=== PATIENT | male | born 1990 | race Caucasian/White ===

== ENCOUNTER 2020-02-28 22:45 | Emergency (ER) | payer SELFPAY ==
--- NOTE | ~2020-02-28 | CT_ITS ---
EXAMINATION: CT orbit BI w con DATE: 02/29/2020 00:05 INDICATION: Possible right orbital cellulitis. Right orbital pain. TECHNIQUE: Computed tomography (CT) of the orbits was performed with 75 cc Omnipaque 350 intravenous contrast. The dose-length product was 159.53 mGy-cm. Automated exposure control and iterative reconst ruction technique were employed. COMPARISON: None FINDINGS: There is mild right periorbital soft tissue edema consistent with cellulitis. No discrete a bscess identified. Mucosal thickening of the ethmoid, right frontal and maxillary sinuses consistent with sinusitis, likely chronic. No intracranial abnormality identified. No post septal abnormality. IMPRESSION: 1. Right periorbital soft tissue edema, consistent with cellulitis. No abscess. 2: Sinusitis. Reviewed, dictated and finalized at location B.
[2020-02-28 22:46] VITALS: BP 130/87; PULSE 74; RESP 20; TEMP 36.6; O2SAT 99
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
[2020-02-28 23:23] LABS: Basophils Absolute Auto 0.1 K/mm3 (0.0-0.1); Basophils Percent Auto 0.6 % (0.2-1.2); Eosinophils Absolute Auto 0.4 K/mm3 (0-0.3); Eosinophils Percent Auto 3.3 % (0-4.4); Hematocrit 46.1 % (42.0-52.0); Immature Granulocyte Absolute 0.04 K/mm3 (0.00-0.031); Immature Granulocyte Percent A 0.4 % (0-0.5); Lymphocytes Absolute Auto 1.57 K/mm3 (0.9-3.2); Lymphocytes Percent Auto 14.5 % (18.3-44.2); Mean Corpuscular HGB Conc 34.7 g/dl (32-36); Mean Corpuscular Hemoglobin 32.2 pg (26-34); Mean Corpuscular Volume 92.8 fl (80-100); Mean Platelet Volume 9.4 fl (7.4-10.4); Monocytes Absolute Auto 0.6 K/mm3 (0.1-0.6); Monocytes Percent Auto 5.4 % (2.6-8.5); Neutrophils Absolute Auto 8.2 K/mm3 (1.3-6.7); Neutrophils Percent Auto 75.8 % (45.5-73.1); Platelet Count Result 248 k/mm3 (150-375); Red Blood Count 4.97 M/mm3 (4.6-6.20); Red Cell Distribution Width 12.1 % (11.5-14.5); White Blood Count 10.8 K/mm3 (4.5-10.0)
[2020-02-28] MEDS: TETRACAINE HCL 0.5% OPHTH SOLN 4 ML BTL 1 DROP EACH EYE (23:29)
[2020-02-28] MEDS: FLUORESCEIN SOD 1 MG/STRIP EACH EYE (23:29)
[2020-02-28 23:44] LABS: Anion Gap 9 mmol/L (8-16); Blood Urea Nitrogen 19 mg/dL (9-20); CRP 0.7 mg/dL (<1.0); Calcium 9.6 mg/dL (8.4-10.2); Carbon Dioxide 27 mmol/L (22-30); Chloride 103 mmol/L (98-107); Estimated CRCL calculation 145 ml/min; Estimated Glomerular Filt Rate > 60; Glucose 118 mg/dL (75-110); Potassium 3.6 mmol/L (3.4-5.0); Sodium 139 mmol/L (137-145)
--- NOTE | 2020-02-28 23:51 | PC.NURSE ---
Patient being taken to CT.
[2020-02-29 00:14] LABS: Erythrocyte Sedimentation Rate 14 mm/hr (0-20)
[2020-02-29] MEDS: TETANUS,DIPHTHERIA,AC PERTUSSIS ADULT (0.5 ML) BOOSTRIX IM (00:38)
[2020-02-29 01:03] VITALS: BP 121/81; PULSE 61; RESP 18; O2SAT 100
== END 2020-02-29 01:34 | disposition home or self-care (01) ==
PROVIDERS: Emergency Provider Emergency Medicine
DX: L03.213 Periorbital cellulitis (principal); S05.01XA Injury of conjunctiva and corneal abrasion without foreign body, right eye, initial encounter; F17.210 Nicotine dependence, cigarettes, uncomplicated; Z23 Encounter for immunization; X58.XXXA Exposure to other specified factors, initial encounter
CPT/HCPCS: 36415; 70481; 80048; 85025; 85652; 86140; 87040; 90471; 90715; 96365; 96367; 99284; J0696; J3370; Q9967

== ENCOUNTER 2022-03-05 16:01 | Inpatient (IN) | payer BC, SELFPAY ==
--- NOTE | ~2022-03-05 | CT_ITS ---
EXAMINATION: CT chest abdomen pelvis w con DATE: 03/05/2022 18:59 INDICATION: Shortness of breath, right chest pain, right flank pain TECHNIQUE: Computed tomography (CT) of the chest, abdomen, and pelvis was performed without intraveno us contrast. Automated exposure control and iterative reconstruction technique were employed. Exam do se: 1163.53 mGy-cm total exam DLP. COMPARISON: None FINDINGS: CHEST CT: Approximately 2.5 cm abscess cavity with fluid level, posterolateral right lung base, right lower lob e. Mild bilateral dependent lower lobe atelectasis. Small right pleural effusion. Normal heart size. No thoracic aortic aneurysm or dissection. No hilar or mediastinal mass lesion or lymphadenopathy. ABDOMEN/PELVIS CT: The liver is unremarkable except for steatosis. The gallbladder is unremarkable. No bile duct or panc reatic duct dilatation. No pancreatic mass lesion or calcification. Splenic size is within normal ran ge. Normal morphology of the adrenal glands. No renal mass lesion or urinary tract calculus or hydroureteronephrosis. Normal caliber of the abdominal aorta. No intraperitoneal or retroperitoneal or pelvic mass lesion or adenopathy. There is a small amount of free fluid in the dependent pelvis. Urinary bladder and prost ate gland are unremarkable. No evidence of appendicitis. No bowel obstruction or intraperitoneal free air. Small fat-containing umbilical hernia. Small fat-containing right inguinal hernia. Transitional lumbosacral vertebra. Included skeletal structures are otherwise unremarkable. IMPRESSION: 2.5 cm right lower lobe lung abscess Reviewed, dictated and finalized at Location [facility]. Reviewed, dictated and finalized at location A.
--- NOTE | ~2022-03-05 | XR_ITS ---
XR chest 2V DATE: 03/05/2022 16:35 INDICATION: Dyspnea, right-sided chest pressure TECHNIQUE: 2 views COMPARISON: None FINDINGS: Normal heart size. No hilar or mediastinal enlargement. No pulmonary infiltrate or consolid ation, pleural effusion or pulmonary vascular congestion or pneumothorax. Mild dextroscoliosis of the thoracic spine. IMPRESSION: No active cardiopulmonary disease Reviewed, dictated and finalized at location A.
--- NOTE | ~2022-03-05 | XR_ITS ---
XR hand RT min 3V DATE: 03/05/2022 17:29 INDICATION: Hand infection/abscess TECHNIQUE: 4 portable views COMPARISON: None FINDINGS: No fracture or dislocation, periosteal reaction or bone destruction, erosive change or nayely drocalcinosis. IMPRESSION: No significant bony abnormality Reviewed, dictated and finalized at location A.
[2022-03-05 16:03] VITALS: BP 146/102; PULSE 102; RESP 18; TEMP 36.8; O2SAT 100
--- NOTE | 2022-03-05 16:46 | ECG_ITS ---
Measurements Intervals [place] Rate: 87 P: 17 WA: 149 QRS: 60 QRSD: 115 T: 7 QT: 367 QTc: 442 Interpretive Statements SINUS RHYTHM INCOMPLETE RIGHT BUNDLE BRANCH BLOCK [90+ ms QRS DURATION, TERMINAL R IN V1/V2, 40+ ms S IN I/aVL/V4/V5/V6] NO PREVIOUS ECG AVAILABLE FOR COMPARISON Electronically Signed On 03-06-2022 16:00:45 CDT by Lorenzo Felder M.D.
--- NOTE | 2022-03-05 16:49 | ED.GENADULT ---
HPI - General Adult General Chief complaint: Shortness of Breath/Dyspnea Stated complaint: SOB Time Seen by Provider: 03/05/22 16:21 History of Present Illness HPI narrative: This is a 31-year-old IV drug user presenting to ED with a chief complaint of right hand abscess, chest pain and difficulty breathing. Patient developed an abscess in his right hand approximately 1 week ago. He had tried to do an I and D at home but has been unsuccessful the hand is getting worse. Last night he developed chest pain and shortness of breath. Chest pain is located along his right ribcage, is a stabbing pain that is worse with deep breaths. patient admits to having fevers. Related Data Allergies Allergy/AdvReac Type Severity Reaction Status Date / Time No Known Drug Allergies Allergy Mild Unknown Verified 03/05/22 16:05 Review of Systems Review of Systems: CONSTITUTIONAL: Denies night sweats. EYES: No eye pain ENT: Denies rhinorrhea CARDIOVASCULAR: Denies palpitations RESPIRATORY: Denies hemoptysis GASTROINTESTINAL: Denies hematemesis GENITOURINARY: Denies hematuria. SKIN: Denies rash MUSCULOSKELETAL: Denies myalgia. NEUROLOGIC: Denies weakness. PSYCHIATRIC: Denies delusions PMF Past Medical History Medical History (Updated 03/05/22 @ 22:28 by Noel Miranda MD) Vision loss of left eye Social History Social History (Updated 03/05/22 @ 16:54 by Noel Miranda MD) Social History: IV drug abuse with fentanyl, smokes meth, denies alcohol, uses tobacco Smoking status: Current every day smoker Tobacco type: cigarettes Alcohol intake: never Substance use: never Gender identity (if verbalized by the patient): Male Exam Narrative: APPEARANCE: patient appears unwell Head atraumatic. EYES: PERRLA/EOMI, NOSE: Normal no drainage NECK: Supple, Trachea midline RESPIRATORY: lungs are clear bilaterally, patient is tachypneic CARDIOVASCULAR: S1S2 appreciated ABDOMINAL: patient has tenderness palpation over the right flank. There is no overlying skin changes. There is no crepitus. The abdomen is soft with no guarding or rebound. MUSCULOSKELETAl: Patient has a fluctuant mass over his right hand with erythema and skin sloughing NEURO: Alert. Moving 4/4 extremities SKIN:: Warm, dry. Normal color PSYCHIATRIC: Normal affect Course Vital Signs Vital signs: Vital Signs Temperature 98.2 F 10/24/22 16:03 Pulse Rate 102 H 03/05/22 16:03 Respiratory Rate 18 03/05/22 16:03 Blood Pressure 146/102 H 03/05/22 16:03 Pulse Oximetry 100 03/05/22 16:03 Temperature 98.2 F 03/05/22 16:03 Pulse Rate 102 H 03/05/22 16:03 Respiratory Rate 18 03/05/22 16:03 Blood Pressure 146/102 H 03/05/22 16:03 Pulse Oximetry 100 03/05/22 16:03 Procedures Abscess I/D hand: Side (if applicable): right Local Anesthetic: lidocaine 2% and with epi Amount of anesthesia used (mL): 5 Technique: incised with #11 blade Amount of fluid expressed (mL): 5 Irrigation: No I&D Results: Pus and Blood Abcess I&D Additional Comments: Loculations broken with hemostat. Medical Decision Making MDM Narrative Medical decision making narrative: this is a 31-year-old male who uses IV drugs presenting to ED chief complaint of chest pain and shortness of breath. Patient also has an abscess on his right hand that has been getting progressively worse over the last week. Chest pain difficulty breathing an IV drug abuser is concerning for multiple things including endocarditis and possible septic emboli to the lung. Additionally his flank pain could be due to a psoas abscess. A CT chest abdomen pelvis has been ordered to evaluate. Cultures have been obtained. Lab work has been obtained. Patient has been given 3 L of IV fluids. I&D was performed on the R hand abscess. Labwork was seen for white blood cell count of 11.1. Hemoglobin was 13.8. BMP revealed hyponatr
[2022-03-05 17:27] LABS: Basophils Percent Auto 0.3 % (0.2-1.2); Eosinophils Absolute Auto 0.2 K/mm3 (0-0.3); Eosinophils Percent Auto 2.1 % (0-4.4); Hematocrit 40.7 % (42.0-52.0); Hemoglobin 13.8 g/dL (14.0-18.0); Immature Granulocyte Absolute 0.04 K/mm3 (0.00-0.031); Immature Granulocyte Percent A 0.4 % (0-0.5); Lymphocytes Absolute Auto 0.99 K/mm3 (0.9-3.2); Lymphocytes Percent Auto 8.9 % (18.3-44.2); Mean Corpuscular HGB Conc 33.9 g/dl (32-36); Mean Corpuscular Hemoglobin 31.3 pg (26-34); Mean Corpuscular Volume 92.3 fl (80-100); Mean Platelet Volume 8.7 fl (7.4-10.4); Monocytes Absolute Auto 0.9 K/mm3 (0.1-0.6); Monocytes Percent Auto 7.7 % (2.6-8.5); Neutrophils Percent Auto 80.6 % (45.5-73.1); Platelet Count Result 271 k/mm3 (150-375); Red Blood Count 4.41 M/mm3 (4.6-6.20); Red Cell Distribution Width 12.2 % (11.5-14.5); White Blood Count 11.1 K/mm3 (4.5-10.0)
[2022-03-05 17:38] LABS: Prothrombin Time 13.2 Seconds (11.1-14.7)
[2022-03-05 17:39] LABS: Partial Thromboplastin Time 39.6 SECONDS (22.3-36.8)
[2022-03-05 17:43] LABS: Alanine Aminotransferase 86 U/L (6-50); Alkaline Phosphatase 137 U/L (38-126); Anion Gap 11 mmol/L (8-16); Aspartate Amino Transferase 69 U/L (17-59); Bilirubin,Total 0.6 mg/dL (0.2-1.3); Blood Urea Nitrogen 9 mg/dL (9-20); Carbon Dioxide 26 mmol/L (22-30); Chloride 97 mmol/L (98-107); Estimated CRCL calculation 142 ml/min; Estimated Glomerular Filt Rate > 60; Glucose 110 mg/dL (65-110); Magnesium 1.7 mg/dL (1.6-2.3); Potassium 4.4 mmol/L (3.4-5.0); Sodium 134 mmol/L (137-145)
[2022-03-05 17:43] LABS: Lactic Acid Reflex 1.2 mmol/L (0.7-2.0)
[2022-03-05 17:48] LABS: Glucose Point of Care 95 mg/dl (65-105)
[2022-03-05 17:53] LABS: NT Pro B Type Natriuretic Pept 75 pg/mL (5-100)
[2022-03-05 17:55] LABS: Troponin I < 0.012 ng/mL (0.000-0.034)
[2022-03-05] MEDS: SODIUM CHLORIDE 0.9% IV 1,000 ML 999 ML IV CONT ×3 (18:26→22:10)
[2022-03-05 20:38] LABS: Add Urine Microscopic? NO; Appearance Urine Clear (Clear); Bilirubin Urine Negative (Negative); Blood Urine Negative (Negative); Color Urine Yellow (Yellow); Glucose Urine UA Negative (Negative); Ketones Urine Negative (Negative); Leukocyte Esterase Ur Negative LEU/UL (Negative); Nitrate Urine Negative (Negative); Protein Urine Negative (Negative); Specific Grav Ur 1.027 (1.001-1.035); Urobilinogen Urine Negative mg/dL (<2.0)
[2022-03-05] MEDS: HYDROmorphone HCL INJ (*CRX) 1 MG/ML SYR IV PUSH (20:49)
[2022-03-05 20:52] LABS: Barbiturate Screen Urine Negative (Negative); Benzodiazepines Screen Urine Negative (Negative)
[2022-03-05 20:56] LABS: Cannabinoid Screen Urine Negative (Negative); Cocaine Screen Urine Negative (Negative); Methadone Screen Urine Negative (Negative); Opiate Screen Urine Negative (Negative); Phencyclidine Screen Urine Negative (Negative)
[2022-03-05 21:18] LABS: Amphetamine Screen Urine Positive (Negative)
--- NOTE | 2022-03-05 21:34 | PC.NURSE ---
PATIENT ACCEPTED AT [facility]. ON WAITLIST FOR BED, POSSIBLE WAIT WILL BE AT LEAST 24 HOURS.
--- NOTE | 2022-03-05 21:44 | PC.NURSE ---
Spoke with [facility] transfer center. [facility] wants covid test and to call back with results
[2022-03-05] MEDS: HYDROmorphone HCL INJ (*CRX) 1 MG/ML SYR 2 MG IV PUSH (22:08)
--- NOTE | 2022-03-05 22:08 | PM.IMHP ---
H&P: HPI History of Present Illness Date/Time: 03/05/22 22:08 Chief Complaint: sob Narrative: This is a 31-year-old male with past medical history significant for intravenous drug use, fentanyl, amphetamine, tobacco dependence, patient smokes up to 2 packs of cigarettes daily. Presents today to the emergency room due to shortness of breath, pain with deep inspiration, night sweats, fevers, chills, cough, denies hemoptysis denies sputum production this has been going on for the last 3 days or so has had poor appetite, denies any nausea, vomiting, abdominal pain, diarrhea. In emergency room preliminary workup was significant for CT of the chest was reported as: IMPRESSION:? 2.5 cm right lower lobe lung abscess Review of Systems Review of Systems: Shortness of breath, pain with deep inspiration, night sweats, fevers, rigors, chills, poor appetite. Constitutional: Constitutional: Reports chills, Reports fever(s), Reports malaise, Reports night sweats and Reports poor appetite Eyes: Eyes: Denies change in vision ENT: Denies dysphagia, Denies vertigo, Denies dizziness and Denies odynophagia Cardiovascular: Cardiovascular: Denies pedal edema, Denies irregular heart rhythm, Denies leg ulcers, Denies leg edema and Denies radiating jaw, neck or arm pain Respiratory: Respiratory: Reports cough, Reports pain on inspiration and Reports dyspnea Gastrointestinal: Gastrointestinal: Denies abdominal pain, Denies dyspepsia, Denies heartburn, Denies diarrhea, Denies nausea and Denies vomiting Genitourinary: Genitourinary: Denies dysuria Musculoskeletal: Musculoskeletal: Reports other ( right hand) Integumentary/Breasts: Skin/Breast: Reports wounds ( right hand dorsum) Neurologic: Denies vertigo, Denies dizziness, Denies syncope, Denies focal weakness and Denies Sensory deficit (Neuro) Psychiatric: Psychiatric: Reports no additional psychiatric complaints and Reports as per HPI Endocrine: Endocrine: Denies cold intolerance, Denies flushing, Denies heat intolerance, Denies polyphagia, Denies polydipsia and Denies palpitations Hematologic/Lymphatic: Hematologic/Lymphatic: Reports no additional hematologic/lymphatic complaints and Reports as per HPI Allergic/Immunologic: Allergic/Immunologic: Reports no additional allergic/immunologic complaints and Reports as per HPI [facility] Past Medical History Medical History (Updated 03/06/22 @ 01:33 by Kj Chicas MD) Vision loss of left eye Social History Social History (Updated 03/05/22 @ 16:54 by Noel Miranda MD) Social History: IV drug abuse with fentanyl, smokes meth, denies alcohol, uses tobacco Smoking packs per day: 1 Smoking cigarettes per day: 20.0 Years smoked: 15 Smoking pack-years: 15.00 Smoking status: Current every day smoker Tobacco type: cigarettes Alcohol intake: never Substance use: current Substance use type: opiates, IV drugs and methamphetamine Gender identity (if verbalized by the patient): Male Spiritual care concerns: No Has the Lack of Transportation Kept You From Medical Appointments or From Getting Medications?: No Within the Past 12 Months, Were You Worried Whether Your Food Would Run Out Before You Got Money to Buy More?: Never True What is Your Housing Situation Today?: I Have Housing Are You Worried That in the Next 2 Months, You May Not Have Your Own Housing to Live In?: No Do You Have Trouble Paying Your Heating Or Electricity Bill?: No Do You Have Trouble Paying For Medicines?: No Are You Currently Unemployed and Looking for Work?: No Highest Level of Education Completed: High School Diploma/GED Do You Have Trouble With Childcare or the Care of a Family Member?: No Meds Home Medications and Allergies Home Medications Medication Instructions Recorded Confirmed Type No Home Medications 03/05/22 03/05/22 History Allergies Allergy/AdvReac Type Severity Reaction Status Date / Time No Known Drug
[2022-03-05 23:44] VITALS: BP 140/51; PULSE 110; RESP 24; TEMP 36.9; O2SAT 99; BMI 27.9
--- NOTE | 2022-03-05 23:49 | ADMGEN ---
This patient, Tacho Hernandez, was admitted to IMU Room 204-01. Patient/family oriented to hospital policies and general routines including ID bracelet, bed and alarms, visiting hours, pain management, procedures, bathroom and other care routines, personal items, smoking policy, room service/diet, and visiting hours. Information on how to activate the Rapid Response Team has been discussed. Patient/Family are encouraged to report perceived risks to care and to ask questions if they do not understand what they are told or what they should do.
[2022-03-05 23:54] LABS: SARS-CoV-2 RNA PCR Negative
[2022-03-05 23:55] VITALS: PULSE 107; RESP 24; O2SAT 97
[2022-03-06] VITALS (31 sets, daily range): BP systolic 122–140; BP diastolic 53–86; PULSE 85–117; RESP 16–30; TEMP 36.4–37; O2SAT 95–100
[2022-03-06] MEDS: NICOTINE (*PBKC) 21 MG PATCH 1 PATCH TRANSDERM ×2 (00:14→13:56)
[2022-03-06] MEDS: traZODone HCL 50 MG TABLET PO ×2 (00:14→20:05)
[2022-03-06] MEDS: HYDROmorphone HCL INJ (*CRX) 1 MG/ML SYR IV PUSH ×6 (00:15→20:05)
[2022-03-06] MEDS: IPRATROPIUM BR 0.02% INH SOLN 0.5 MG/2.5 ML VIAL INHALATION ×6 (00:19→21:02)
[2022-03-06] MEDS: ALBUTEROL SULFATE NEB 2.5 MG/3 ML INH 5 MG INHALATION ×6 (00:19→21:03)
[2022-03-06] MEDS: traMADol/ACETAMINOPHEN (*CRX) (ULTRACET) 37.5/325 MG TABLET 1 TAB PO ×4 (05:00→22:47)
--- NOTE | 2022-03-06 11:42 | PM.IMPN ---
Progress Note: A&P Assessment and Plan (1) Abscess of lung: Code(s): J85.2 - Abscess of lung without pneumonia Status: Acute Assessment and Plan: patient is awaiting bed at tertiary facility currently on cefepime plus vanc cultures in progress breathing treatments supportive care (2) Polysubstance (including opioids) dependence w/o physiol dependence: Code(s): F19.20 - Other psychoactive substance dependence, uncomplicated Status: Acute Assessment and Plan: supportive care (3) IVDU (intravenous drug user): Code(s): F19.90 - Other psychoactive substance use, unspecified, uncomplicated Status: Acute Assessment and Plan: cultures in progress (4) Tobacco dependence: Code(s): F17.200 - Nicotine dependence, unspecified, uncomplicated Status: Acute Assessment and Plan: nicotine patch as needed (5) Cellulitis of dorsum of hand: Status: Acute Assessment and Plan: patient is on vancomycin and cefepime awaiting bed at tertiary facility Subjective Date/time seen: 03/06/22 11:42 Patient on 2L. Very anxious as he is likely going through some withdrawal. Denies any chest pain or abdominal pain or any other complaints Exam Const: General: well developed, alert, awake, acute distress mild, ill appearing, tired appearing, uncomfortable, average body habitus and thin Nutritional Appearance: average body habitus and thin Orientation/consciousness: patient oriented x3 HENMT: Head: normal to inspection, normocephalic and atraumatic Ears: hearing grossly normal bilaterally Face/Nose/Sinus: normal facial exam Face and sinus: normal facial exam Eyes: General: appearance normal, both eyes and all related structures Pupils: Equal, round and reactive pupils present EOM: EOMs intact bilaterally Neck: Neck: full ROM, no lymphadenopathy and no JVD Thyroid: thyroid normal Lymphatic: no lymphadenopathy noted Resp: Effort & Inspection: normal respiratory effort and able to speak in complete sentences Auscultation: clear to auscultation bilaterally Cardio: Jugular venous distension: no JVD Rate: regular rate Rhythm: regular rhythm Heart sounds: S1 normal heart sound present and S2 normal heart sound present : General: Yes deferred Skin: General skin exam: wounds noted ( right hand dorsum) Rashes: no rashes Wounds: wounds noted ( right hand dorsum) Neuro: General: patient oriented x3, CN's II-XI intact bilaterally and Unable to assess gait Cranial nerves: Yes CN's II-XII intact bilaterally and Yes Equal, round and reactive pupils present Cognition (Neuro): normal cognition Speech: normal speech Gait exam (Neuro): Unable to assess gait Motor exam (neuro): 5/5 motor strength present throughout Sensory Exam: No Sensory deficit (Neuro) Extrem: General: normal to inspection, full ROM, no joint enlargement and no pedal edema Right upper extremity: Extremity exam: right hand ( wound) Objective Data Vital Signs Vital Signs: Vital Signs - 24 hr 03/05/22 16:03 03/05/22 23:44 03/05/22 23:55 Temperature 98.2 F 98.5 F Pulse Rate 102 H 110 H 107 H Respiratory Rate 18 24 H Blood Pressure 146/102 H 140/51 L Pulse Oximetry 100 99 Oxygen Delivery Oxygen Flow Rate 03/05/22 23:55 03/06/22 00:22 03/06/22 00:23 Temperature Pulse Rate 107 H 116 H Respiratory Rate 24 H 25 H Blood Pressure Pulse Oximetry 97 95 Oxygen Delivery Nasal Cannula Nasal Cannula Oxygen Flow Rate 2 2 03/06/22 00:30 03/06/22 01:44 03/06/22 03:23 Temperature Pulse Rate 108 H 115 H 117 H Respiratory Rate 22 H Blood Pressure Pulse Oximetry Oxygen Delivery Oxygen Flow Rate 03/06/22 03:23 03/06/22 03:58 03/06/22 04:13 Temperature 98.2 F Pulse Rate 117 H 117 H 115 H Respiratory Rate 22 H 22 H 30 H Blood Pressure 125/86 Pulse Oximetry 95 98 Oxygen Delivery Nasal Cannula Oxygen Flow Rate 2 03/06/22 04
[2022-03-07] VITALS (29 sets, daily range): BP systolic 120–141; BP diastolic 71–86; PULSE 71–107; RESP 18–36; TEMP 36.2–37.4; O2SAT 96–100
--- NOTE | 2022-03-07 | ECHO_ITS ---
Patient Info Name: Tacho Hernandez Age: 31 years : 1990 Gender: Male Ht: 72 in Wt: 206 lbs BSA: 2.20 m2 HR: 78 bpm BP: 132 / 78 mmHg Technical Quality: Fair Exam Date: 03/07/2022 11:35 AM Exam Location: [facility] Pulmonary Exam Room: 204 Patient Status: Inpatient Admit Date: 03/05/2022 Staff Ordering Physician: Scotty Rivera MD Laundry Attendant: Toshia Guerrero RDCS Attending Provider: Kj Chicas MD Exam Type: CA echo doppler color flow Study Info Indications - lung absess hx/o IV DRUG ABUSE CP SOB Complete two-dimensional, color flow and Doppler transthoracic echocardiogram is performed. Summary 1. Complete two-dimensional, color flow and Doppler transthoracic echocardiogram is performed. 2. Left ventricular chamber dimension is normal. 3. Left ventricular systolic function is normal, estimated at 65-70%. 4. The left ventricular diastolic function is grade I diastolic dysfunction. 5. E/e' 5 is not elevated. 6. There is trace mitral valve regurgitation. 7. There is trace tricuspid valve regurgitation. 8. No pulmonary hypertension, estimated pulmonary arterial systolic pressure is 28 mmHg. Left Ventricle E/e' 5 is not elevated. Left ventricular chamber dimension is normal. Left ventricular systolic function is normal, estimated at 65-70%. The left ventricular diastolic function is grade I diastolic dysfunction. Right Ventricle Right ventricular chamber dimension is normal. Right ventricular systolic function is normal. Left Atria Left atrial chamber dimension is normal. Right Atria Right atrial chamber dimension is normal. Aortic Valve The aortic valve is trileaflet. There is no aortic valve stenosis. There is no aortic valve regurgitation. No aortic valve vegetation visualized. Pulmonic Valve There is no pulmonic regurgitation. No pulmonic valve vegetation visualized. Mitral Valve There is no mitral valve stenosis. There is trace mitral valve regurgitation. No mitral valve vegetation visualized. Tricuspid Valve There is trace tricuspid valve regurgitation. No pulmonary hypertension, estimated pulmonary arterial systolic pressure is 28 mmHg. No tricuspid valve vegetation visualized. Pericardium/Pleural There is no pericardial effusion. Inferior Vena Cava Normal inferior vena cava with >50% collapse upon inspiration consistent with normal right atrial pressure, 5 mmHg. Aorta The aortic root size at the sinus of Valsalva is normal. Left Ventricular Outflow Tract Name Value Normal LVOT 2D LVOT Diameter 2.1 cm LVOT Doppler LVOT Peak Gradient 4 mmHg LVOT Mean Gradient 2 mmHg LVOT VTI 20 cm LVOT VTI/AV VTI Ratio 1.0 LVOT Stroke Volume 65 ml LVOT CO 14.5 l/min LVOT CI 6.6 l/min/m2 Pulmonic Valve Name Value Normal --
[2022-03-07] MEDS: IPRATROPIUM BR 0.02% INH SOLN 0.5 MG/2.5 ML VIAL INHALATION ×7 (00:05→23:57)
[2022-03-07] MEDS: ALBUTEROL SULFATE NEB 2.5 MG/3 ML INH 5 MG INHALATION ×7 (00:05→23:57)
[2022-03-07] MEDS: HYDROmorphone HCL INJ (*CRX) 1 MG/ML SYR IV PUSH ×5 (02:04→20:37)
[2022-03-07] MEDS: traMADol/ACETAMINOPHEN (*CRX) (ULTRACET) 37.5/325 MG TABLET 1 TAB PO ×3 (05:20→23:15)
[2022-03-07 08:39] LABS: Basophils Percent Auto 0.2 % (0.2-1.2); Eosinophils Absolute Auto 0.2 K/mm3 (0-0.3); Eosinophils Percent Auto 1.4 % (0-4.4); Hematocrit 38.5 % (42.0-52.0); Hemoglobin 12.8 g/dL (14.0-18.0); Immature Granulocyte Absolute 0.08 K/mm3 (0.00-0.031); Immature Granulocyte Percent A 0.7 % (0-0.5); Lymphocytes Absolute Auto 1.59 K/mm3 (0.9-3.2); Lymphocytes Percent Auto 14.1 % (18.3-44.2); Mean Corpuscular HGB Conc 33.2 g/dl (32-36); Mean Corpuscular Hemoglobin 30.7 pg (26-34); Mean Corpuscular Volume 92.3 fl (80-100); Mean Platelet Volume 8.6 fl (7.4-10.4); Monocytes Absolute Auto 1.1 K/mm3 (0.1-0.6); Monocytes Percent Auto 9.9 % (2.6-8.5); Neutrophils Absolute Auto 8.3 K/mm3 (1.3-6.7); Neutrophils Percent Auto 73.7 % (45.5-73.1); Platelet Count Result 315 k/mm3 (150-375); Red Blood Count 4.17 M/mm3 (4.6-6.20); Red Cell Distribution Width 12.7 % (11.5-14.5); White Blood Count 11.3 K/mm3 (4.5-10.0)
[2022-03-07 08:48] LABS: Estimated CRCL calculation 163 ml/min; Estimated Glomerular Filt Rate > 60
[2022-03-07 08:49] LABS: Alanine Aminotransferase 56 U/L (6-50); Alkaline Phosphatase 108 U/L (38-126); Anion Gap 13 mmol/L (8-16); Aspartate Amino Transferase 32 U/L (17-59); Bilirubin,Total 0.5 mg/dL (0.2-1.3); Blood Urea Nitrogen 9 mg/dL (9-20); Carbon Dioxide 29 mmol/L (22-30); Chloride 95 mmol/L (98-107); Estimated CRCL calculation 142 ml/min; Estimated Glomerular Filt Rate > 60; Glucose 114 mg/dL (65-110); Potassium 3.9 mmol/L (3.4-5.0); Sodium 137 mmol/L (137-145)
[2022-03-07] MEDS: NICOTINE (*PBKC) 21 MG PATCH 1 PATCH TRANSDERM (09:09)
--- NOTE | 2022-03-07 09:12 | PM.IMPN ---
Progress Note: A&P Assessment and Plan (1) Abscess of lung: Code(s): J85.2 - Abscess of lung without pneumonia Status: Acute Assessment and Plan: Patient presents with pleuritic chest pain and shortness of breath. Chest CT shows a 2.5 cm right lower lobe lung abscess. He has been started on cefepime and vancomycin. He has abdominal pain but probably related to the involvement of the diaphragm. This would explain the radiation of the pain into the upper chest. CT of the abdomen did not show any acute findings. Patient is awaiting a bed at a tertiary care facility. We do not have ID here. Blood cultures are pending. Continue IV antibiotics. Continue nebulizer treatments. Pulmonary consult. EKG reviewed showing iRBBB. Check surface Echo. (2) Cellulitis of dorsum of hand: Status: Acute Assessment and Plan: Patient with right hand cellulitis and abscess. Debridement of the right hand showed mostly with dried eschar (that was removed) with new skin that has already developed. More locally to the right MCP, there is a smaller cellulitic area with abscess that is tunneling. Patient is on vancomycin and cefepime. Will have Plastic surgery consult. Patient is awaiting a bed at a tertiary care facility. Continue dressing changes. No coverage with hand surgery. Calling again to see if bed available. (3) Polysubstance (including opioids) dependence w/o physiol dependence: Code(s): F19.20 - Other psychoactive substance dependence, uncomplicated Status: Acute Assessment and Plan: Patient has a hx of polysubstance abuse with hx of IVDU. UDS positive for Amphetamines. He does have Dilaudid and Ultracet prn ordered for pain. Monitor for evidence of withdrawal. Check for viral Hepatitis and HIV. (4) IVDU (intravenous drug user): Code(s): F19.90 - Other psychoactive substance use, unspecified, uncomplicated Status: Acute Assessment and Plan: As above (5) Tobacco dependence: Code(s): F17.200 - Nicotine dependence, unspecified, uncomplicated Status: Acute Assessment and Plan: Nicotine patch ordered. Subjective Date/time seen: 03/07/22 09:12 Interval history: 31yo male with hx of polysubstance abuse with IVDU here for right hand wound, chest pain and SOB and found to have right hand abscess/cellulitis and RLL lung abscess. Assuming care. Chart reviewed. Patient currently having right hand wound cleaned and dressed by access clerk. Patient with right hand pain with more pain assoicated with right lower chest/right upper abd worse with deep breathing. Pain radiates to the right upper chest. Cough productive of green/black sputum. No n/v/d. Passing flatus. Last BM yesterday. Exam Narrative: AF 98.1 132/78 100 18 96% 2L Gen - NARD but appears uncomfortable Chest - decreased BS right base o/w clear to quiet short breaths. CV - RRR S1/S2. Tele showing no alarms Abd - Soft, diffusely tender but worse in the RUQ. No rebound but occasional guarding. +BS Ext - No pedal edema Neuro - nml sensation to the right fingertips. slight weakness to the interosseous strength involving the middle finger. Psych - Nml mood and affect Skin - Warm and dry. right dorsum hand overlying the 3rd MCP joint with a 3 x0.8cm round erthematous patch with open area of 1cm depth to bone (per RN). Objective Data Vital Signs Vital Signs: Vital Signs - 24 hr 03/06/22 10:46 03/06/22 11:30 03/06/22 11:42 Temperature Pulse Rate 88 95 98 Respiratory Rate 22 H 22 H Blood Pressure Pulse Oximetry Oxygen Delivery Oxygen Flow Rate 03/06/22 11:55 03/06/22 12:20 03/06/22 14:00 Temperature 98.5 F Pulse Rate 102 H 96 99 Respiratory Rate 16 Blood Pressure 122/68 Pulse Oximetry 100 Oxygen Delivery Oxygen Flow Rate 03/06/22 16:12 03/06/22 16:20 03/06/22 16:31 Temperature 98.6 F Pulse Rate 106 H 98 93 Respiratory R
[2022-03-07 09:21] LABS: Vancomycin Trough 6.3 ug/mL (10.0-20.0)
[2022-03-07 09:37] LABS: HIV 1/2 Ab P24 Ag Result Negative (Negative)
[2022-03-07 10:37] LABS: Hepatitis B Surface Antigen Negative (Negative)
[2022-03-07 10:43] LABS: HAV RESULT Negative (Negative); Hepatitis B Core IgM Result Negative (Negative)
[2022-03-07 10:55] LABS: Hepatitis C Virus Antibody Reactive (Negative)
[2022-03-07] MEDS: traZODone HCL 50 MG TABLET PO (20:37)
[2022-03-08] VITALS (24 sets, daily range): BP systolic 121–137; BP diastolic 69–80; PULSE 73–108; RESP 16–24; TEMP 36.3–37.2; O2SAT 97–100
[2022-03-08] MEDS: HYDROmorphone HCL INJ (*CRX) 1 MG/ML SYR IV PUSH ×5 (01:54→19:56)
[2022-03-08] MEDS: IPRATROPIUM BR 0.02% INH SOLN 0.5 MG/2.5 ML VIAL INHALATION ×4 (04:11→20:47)
[2022-03-08] MEDS: ALBUTEROL SULFATE NEB 2.5 MG/3 ML INH 5 MG INHALATION ×4 (04:11→20:47)
[2022-03-08] MEDS: NICOTINE (*PBKC) 21 MG PATCH 1 PATCH TRANSDERM (08:39)
[2022-03-08] MEDS: traMADol/ACETAMINOPHEN (*CRX) (ULTRACET) 37.5/325 MG TABLET 1 TAB PO ×2 (08:51→22:23)
[2022-03-08 09:25] LABS: Basophils Percent Auto 0.4 % (0.2-1.2); Eosinophils Absolute Auto 0.2 K/mm3 (0-0.3); Eosinophils Percent Auto 2.2 % (0-4.4); Hematocrit 41.3 % (42.0-52.0); Hemoglobin 13.9 g/dL (14.0-18.0); Immature Granulocyte Absolute 0.09 K/mm3 (0.00-0.031); Lymphocytes Absolute Auto 1.41 K/mm3 (0.9-3.2); Mean Corpuscular HGB Conc 33.7 g/dl (32-36); Mean Platelet Volume 8.3 fl (7.4-10.4); Monocytes Percent Auto 10.1 % (2.6-8.5); Neutrophils Absolute Auto 6.7 K/mm3 (1.3-6.7); Neutrophils Percent Auto 71.3 % (45.5-73.1); Platelet Count Result 298 k/mm3 (150-375); Red Blood Count 4.64 M/mm3 (4.6-6.20); Red Cell Distribution Width 12.6 % (11.5-14.5); White Blood Count 9.4 K/mm3 (4.5-10.0)
[2022-03-08 09:35] LABS: Anion Gap 12 mmol/L (8-16); Blood Urea Nitrogen 9 mg/dL (9-20); Calcium 9.2 mg/dL (8.4-10.2); Carbon Dioxide 29 mmol/L (22-30); Chloride 95 mmol/L (98-107); Estimated CRCL calculation 142 ml/min; Estimated Glomerular Filt Rate > 60; Glucose 109 mg/dL (65-110); Potassium 4.1 mmol/L (3.4-5.0); Sodium 136 mmol/L (137-145)
--- NOTE | 2022-03-08 10:54 | PM.IMPN ---
Progress Note: A&P Assessment and Plan (1) Abscess of lung: Code(s): J85.2 - Abscess of lung without pneumonia Status: Acute Assessment and Plan: Patient presents with pleuritic chest pain and shortness of breath. Chest CT shows a 2.5 cm right lower lobe lung abscess. He has been started on cefepime and vancomycin. He has abdominal pain but probably related to the involvement of the diaphragm. This would also explain the radiation of the pain into the upper chest. CT of the abdomen did not show any acute findings. Patient is awaiting a bed at a tertiary care facility. We do not have ID or hand surgeon here. Blood cultures NGTD. WBC normal and no fevers Echo showing no acute findings. Continue IV antibiotics. Continue nebulizer treatments. Pulmonary consulted. Add Flagyl (2) Cellulitis of dorsum of hand: Status: Acute Assessment and Plan: Patient with right hand cellulitis and abscess. Debridement of the right hand showed mostly dried eschar (that was removed) with new skin that has already developed. More locally to the right MCP, there is a smaller cellulitic area with abscess that is tunneling. Patient is on vancomycin and cefepime. No coverage for surgery. Patient is awaiting a bed at a tertiary care facility. Continue dressing changes. (3) Polysubstance (including opioids) dependence w/o physiol dependence: Code(s): F19.20 - Other psychoactive substance dependence, uncomplicated Status: Acute Assessment and Plan: Patient has a hx of polysubstance abuse with hx of IVDU. UDS positive for Amphetamines. He does have Dilaudid, Ultracet and Acet prn ordered for pain. HIV negative. Hepatits panel negative except HepC Ab. HepC confirmation pending. Monitor for evidence of withdrawal. (4) IVDU (intravenous drug user): Code(s): F19.90 - Other psychoactive substance use, unspecified, uncomplicated Status: Acute Assessment and Plan: As above (5) Tobacco dependence: Code(s): F17.200 - Nicotine dependence, unspecified, uncomplicated Status: Acute Assessment and Plan: Nicotine patch ordered. Subjective Date/time seen: 03/08/22 10:54 Interval history: 31yo male with hx of polysubstance abuse with IVDU here for right hand wound, chest pain and SOB and found to have right hand abscess/cellulitis and RLL lung abscess. Patient feels better today. Shortness of breath slightly improved. Still with right-sided chest pain. Eating small amounts. No nausea or vomiting. No diarrhea. Not ambulating much. Can almost make a fist with the right hand Exam Narrative: AF 97.4 123/78 98 24 100% 2L Gen - KAYLA Chest - decreased BS right base o/w clear. nml RR CV - RRR S1/S2. Tele showing no alarms Abd - Soft, tender with guarding RUQ. +BS Ext - No pedal edema Psych - Nml mood and affect Skin - Warm and dry. Right hand dressing clean and dry Objective Data Vital Signs Vital Signs: Vital Signs - 24 hr 03/07/22 11:03 03/07/22 12:00 03/07/22 12:00 Temperature 98.4 F Pulse Rate 85 97 84 Respiratory Rate 33 H Blood Pressure 133/74 Pulse Oximetry 100 Oxygen Delivery Oxygen Flow Rate 03/07/22 12:00 03/07/22 14:00 03/07/22 15:55 Temperature Pulse Rate 71 102 H Respiratory Rate Blood Pressure Pulse Oximetry 100 Oxygen Delivery Nasal Cannula Oxygen Flow Rate 1 03/07/22 15:56 03/07/22 16:00 03/07/22 16:20 Temperature 98.2 F Pulse Rate 96 105 H Respiratory Rate 36 H Blood Pressure 129/79 Pulse Oximetry 98 99 Oxygen Delivery Nasal Cannula Oxygen Flow Rate 1 03/07/22 16:20 03/07/22 18:00 03/07/22 19:56 Temperature 99.3 F Pulse Rate 105 H 92 Respiratory Rate 28 H Blood Pressure 120/71 Pulse Oximetry 99 99 Oxygen Delivery Nasal Cannula Oxygen Flow Rate 1 03/07/22 20:06 03/07/22 20:17 03/07/22 20:00 Temperature Pulse Rate 100 103 H 95 Respira
[2022-03-08] MEDS: ENOXAPARIN 40 MG/0.4 ML SYRINGE SUB-Q (12:50)
--- NOTE | 2022-03-08 16:49 | PM.CNPUL ---
Assessment and Plan Assessment and plan (1) Abscess of lung: Code(s): J85.2 - Abscess of lung without pneumonia Status: Acute Assessment and Plan: He has a thick walled abscess in the right lung, needs probably 2-3 weeks antibiotic treatment with coverage for anaerobes. He is on cefepime #2, Flagyl #0 and vancomycin #2. WBC is now normal, 9.4K, with a normocytic anemia H/H 13.9/41.3%. He is on the list for transfer to [facility] where he will have access to hand surgery for his infected right hand with abscess from injecting fentanyl. He does not give a history of aspiration, but his teeth are in poor condition, and he uses IV drugs so aspiration is a real threat. I think Unasyn-> ampicillin sulbactam may be better coverage for anaerobes from the mouth. This will the Flagyl and Cefepime be discontinued. If he stays, he will need a swallow evaluation. Bronchoscopy won't be helpful because his fluid filled lung abscess is too distal to reach with bronchoscope. (2) Tobacco dependence: Code(s): F17.200 - Nicotine dependence, unspecified, uncomplicated Status: Acute Assessment and Plan: He is more significant substance abuse. He likely won't be able to deal with tobacco cessation until he addresses crack. History of Present Illness History of Present Illness Consult date: 03/08/22 Requesting physician: Scotty Rivera MD Chief complaint: lung abscess Narrative: NEW: Tacho Hernandez is a 31-year-old man with a history of IV drugs, has an infected Right hand from injecting IV fentanyl. He went through rehab in May 2021 for snorting fentanyl. Has also used amphetamine. He is a tobacco smoker, tells me 1 ppd. He says that he started feeling sick 2 weeks prior to this admission, admitted on Mar 05 for an abscess on the right hand which started 1 week prior to admission. He also had fever, right sided chest pain worse with inspiration, and shortness of breath. He tried to perform and I & D on his right hand using his left hand, hit a bone, and the infection worsened. He has a decreased appetite, night sweats, fevers and chills, told me that he had some shortness of breath. He did not have a cough or sputum. No hemoptysis. CT chest abd pelvis 03/05/2022 : ? 2.5 cm right lower lobe lung abscess He has been placed on a list to be transferred to [facility] for higher level services for his hand abscess and thick walled lung abscess. The lung abscess should be treated with antibiotics to cover anaerobes. This abscess does not need to get a biopsy or needle in it, as this may cause it to form a fistulous tract. Review of Systems Review of Systems: All systems reviewed & are unremarkable except as noted in HPI and below PMFSH Past Medical History Medical History (Updated 03/06/22 @ 01:33 by Kj Chicas MD) Vision loss of left eye Social History Social History (Updated 03/05/22 @ 16:54 by Noel Miranda MD) Social History: IV drug abuse with fentanyl, smokes meth, denies alcohol, uses tobacco Smoking packs per day: 1 Smoking cigarettes per day: 20.0 Years smoked: 15 Smoking pack-years: 15.00 Smoking status: Current every day smoker Tobacco type: cigarettes Alcohol intake: never Substance use: current Substance use type: opiates, IV drugs and methamphetamine Has the Lack of Transportation Kept You From Medical Appointments or From Getting Medications?: No Within the Past 12 Months, Were You Worried Whether Your Food Would Run Out Before You Got Money to Buy More?: Never True What is Your Housing Situation Today?: I Have Housing Are You Worried That in the Next 2 Months, You May Not Have Your Own Housing to Live In?: No Do You Have Trouble Paying Your Heating Or Electricity Bill?: No Do You Have Trouble Paying For Medicines?: No Are Y
[2022-03-08] MEDS: AMPICILLIN SULB 3 GM/NS 100 ML 3 GM/100 ML VIAL IVPB ×2 (19:55→23:43)
[2022-03-08] MEDS: metroNIDAZOLE 250 MG TABLET 500 MG PO ×2 (19:56→23:44)
[2022-03-08] MEDS: traZODone HCL 50 MG TABLET PO (19:56)
[2022-03-09] VITALS (7 sets, daily range): BP systolic 132; BP diastolic 80; PULSE 91–110; RESP 16–18; TEMP 37; O2SAT 98
[2022-03-09] MEDS: ALBUTEROL SULFATE NEB 2.5 MG/3 ML INH 5 MG INHALATION ×2 (00:46→03:39)
[2022-03-09] MEDS: IPRATROPIUM BR 0.02% INH SOLN 0.5 MG/2.5 ML VIAL INHALATION ×2 (00:46→03:38)
--- NOTE | 2022-03-09 00:48 | PCRCNOTE ---
Pt refused breathing TX at 0049. RT informed RN to assist PT taking TX. Pt agreed to take TX, RT will have RN accompany RT during schedule TX.
[2022-03-09] MEDS: HYDROmorphone HCL INJ (*CRX) 1 MG/ML SYR IV PUSH ×2 (00:50→04:31)
[2022-03-09 05:19] LABS: Alanine Aminotransferase 35 U/L (6-50); Albumin Level 3.8 g/dL (3.5-5.1); Alkaline Phosphatase 98 U/L (38-126); Anion Gap 14 mmol/L (8-16); Aspartate Amino Transferase 28 U/L (17-59); Bilirubin,Total 0.4 mg/dL (0.2-1.3); Blood Urea Nitrogen 11 mg/dL (9-20); Calcium 8.9 mg/dL (8.4-10.2); Carbon Dioxide 27 mmol/L (22-30); Chloride 95 mmol/L (98-107); Estimated CRCL calculation 142 ml/min; Estimated Glomerular Filt Rate > 60; Glucose 97 mg/dL (65-110); Potassium 3.8 mmol/L (3.4-5.0); Sodium 136 mmol/L (137-145)
--- NOTE | 2022-03-10 08:03 | PM.TDS ---
Transfer Discharge Sum: Prov Provider Date of admission: 03/08/22 16:04 Primary care physician: [facility] CONSULTANT PHYSICIAN Admitting clinician: Kj Chicas MD Consults: 03/07/22 09:31 Consult to Physician Routine Comment: Spoke with and notified her of consult Consulting Provider: Rita Gandhi will call clerk/MD group to consult: Pulmonary Reason for consultation: lung abscess Has provider been notified: Yes Anticipated date of transfer: 03/09/22 DS: Admitting Diagnosis Discharge Date 03/09/22 Admitting Diagnosis Shortness of breath DS: Discharge Diagnosis Discharge Diagnosis (1) Abscess of lung: Code(s): J85.2 - Abscess of lung without pneumonia Status: Acute (2) Cellulitis of dorsum of hand: Status: Acute (3) Polysubstance (including opioids) dependence w/o physiol dependence: Code(s): F19.20 - Other psychoactive substance dependence, uncomplicated Status: Acute (4) IVDU (intravenous drug user): Code(s): F19.90 - Other psychoactive substance use, unspecified, uncomplicated Status: Acute (5) Tobacco dependence: Code(s): F17.200 - Nicotine dependence, unspecified, uncomplicated Status: Acute Transfer Discharge Sum: Med Medications Active and Home Medications: Home Medications No Home Medications 03/05/22 [History Confirmed 03/05/22] Transfer Discharge Sum: Hosp Hospital Course Hospital course: 31yo male with hx of polysubstance abuse with IVDU here for right hand wound, chest pain and SOB and found to have right hand abscess/cellulitis and RLL lung abscess. Please see H&P for details Patient presents with pleuritic chest pain and shortness of breath.? Chest CT shows a 2.5 cm right lower lobe lung abscess.? He was started on cefepime and vancomycin.? He has abdominal pain but probably related to the involvement of the diaphragm.? CT of the abdomen did not show any acute findings.?Blood cultures NGTD. WBC normal and no fevers? Echo showing no acute findings. Abx adjusted for anaerobic coverage. Patient with right hand cellulitis and abscess.? Debridement of the right hand showed mostly dried eschar (that was removed) with new skin that has already developed.? More locally to the right MCP, there is a smaller cellulitic area with abscess that is tunneling.?Patient has a hx of polysubstance abuse with hx of IVDU. UDS positive for Amphetamines. HIV negative. Hepatitis panel negative except HepC Ab positive. HepC confirmation pending. No evidence of withdrawal.?Patient was transferred in stable condition to a higher level of care on 03/09/22 in the stitch rubber hours. Patient was not seen nor examined on day of transfer. Time Spent with Patient Time attestation: Total time spent providing and/or coordinating transfer services: 10 minutes Total time spent: Less than 30 minutes Exam Narrative: AF 97.4 123/78 98 24 100% 2L Gen - NARD Chest - decreased BS right base o/w clear. nml RR CV - RRR S1/S2. Tele showing no alarms Abd - Soft, tender with guarding RUQ. +BS Ext - No pedal edema Psych - Nml mood and affect Skin - Warm and dry. Right hand dressing clean and dry (Exam from 03/08: Patient was not seen nor examined on bridger of transfer) DS: Data Data Completed and Pending Labs on day of discharge: Labs from last 24 hours 03/07/22 08:17 HCV RNA (PCR) IUs/ml 20.6e6 H Preliminary micro results at discharge 03/05/22 17:42 Blood Culture - Preliminary Blood
== END 2022-03-09 05:37 | disposition short-term general hospital (02) | DRG 137 ==
LOC: ANHED 22:28 → ANHIMU 22:58
PROVIDERS: Admitting Provider Internal Medicine; Emergency Provider Emergency Medicine; Visit Provider Internal Medicine
DX: J85.2 Abscess of lung without pneumonia (principal); E87.1 Hypo-osmolality and hyponatremia; L03.113 Cellulitis of right upper limb; F11.20 Opioid dependence, uncomplicated; F15.20 Other stimulant dependence, uncomplicated; L02.511 Cutaneous abscess of right hand; F17.210 Nicotine dependence, cigarettes, uncomplicated; H54.7 Unspecified visual loss; Z20.822 Contact with and (suspected) exposure to COVID-19; Z28.21 Immunization not carried out because of patient refusal
CPT/HCPCS: 10060; 36415; 71046; 71260; 73130; 74177; 80048; 80053; 80074; 80202; 80307; 81003; 82565; 82948; 83605; 83735; 83880; 84484; 85025; 85610; 85730; 86140; 86703; 87040; 87522; 93005; 93306; 94640; 96361; 96365; 96366; 96367; 96372; 96375; 96376; 99285; A9270; G0378; G0379; G0432; J0295; J0692; J1170; J1650; J3370; J7030; Q9967; U0003; U0005